=== PATIENT | female | born 1940 | race Caucasian/White ===

== ENCOUNTER 2022-12-31 05:20 | Day surgery (SDC) | payer MEDICARE, MEDICAID ==
[~2022-12-31] VITALS: Ht 160 cm; Wt 72.6 kg
[2022-12-31] MEDS ORDERED: LABETALOL 100 MG/ 20ML VIAL IVP PRN (08:30)
[2022-12-31] MEDS ORDERED: METOCLOPRAMIDE HCL 10 MG/2 ML VIAL IVP PRN (08:30)
[2022-12-31] MEDS ORDERED: LR 1,000 ML IV SCH (08:30)
[2022-12-31] MEDS ORDERED: HYDROmorphone 1 MG/ML INJ. CARTRIDGE IVP PRN ×2 (08:30)
[2022-12-31] MEDS ORDERED: MEPERIDINE HCL/PF 25 MG/ML DISP.SYRIN IVP PRN (08:30)
[2022-12-31] MEDS ORDERED: hydrALAZINE HCL 20 MG/ML VIAL IVP PRN (08:30)
[2022-12-31] MEDS ORDERED: DESFLURANE 15 MIN GAS INH ONE (09:10)
[2022-12-31] MEDS ORDERED: LIDOCAINE/EPI 1% 1:100000 20 ML VIAL ONE (09:10)
[2022-12-31] MEDS ORDERED: ONDANSETRON HCL 4 MG/2 ML VIAL ONE (09:10)
[2022-12-31] MEDS ORDERED: LR 1,000 ML IV.SOLN IV ONE (09:10)
[2022-12-31] MEDS ORDERED: SUGAMMADEX SODIUM 200 MG/2 ML VIAL IV ONE (09:10)
[2022-12-31] MEDS ORDERED: OXYMETAZOLINE HCL 0.05% NASAL SPRAY NS ONE (09:10)
[2022-12-31] MEDS ORDERED: METOCLOPRAMIDE HCL 10 MG/2 ML VIAL ONE (09:10)
[2022-12-31] MEDS ORDERED: DEXAMETHASONE SOD PHOSPHATE 4 MG/ML VIAL ONE (09:10)
[2022-12-31] MEDS ORDERED: ROCURONIUM BROMIDE 10 MG/ML (ZEMURON) ONE (09:10)
[2022-12-31] MEDS ORDERED: LIDOCAINE 1% 10 MG/ML, 20 ML MDV ONE (09:10)
[2022-12-31] MEDS ORDERED: NS IRRIG SOLN 1000 ML IR ONE (09:10)
[2022-12-31] MEDS ORDERED: MIDAZOLAM HCL 5 MG/ML VIAL (VERSED) IV ONE (09:10)
[2022-12-31] MEDS ORDERED: PROPOFOL 200MG/ 20ML VIAL (DIPRIVAN) IV ONE (09:10)
[2022-12-31] MEDS ORDERED: CIPROFLOXACIN HCL 0.3% EYE DRP 2.5 ML DROPS ONE (09:10)
[2022-12-31] MEDS ORDERED: fentaNYL CITRATE/PF 100 MCG/2 ML AMP ONE (09:10)
[2022-12-31] MEDS ORDERED: LABETALOL HCL 20 MG/4 ML CARTRIDGE IVP ONE (09:40)
[2022-12-31 13:44] VITALS: BP_SYST 125
== END 2022-12-31 11:34 | disposition home or self-care (01) ==
LOC: SDS 05:20 → SMU 05:20 → SDS 11:34
PROVIDERS: ATTEND Otolaryngology
DX: H65.92 Unspecified nonsuppurative otitis media, left ear (principal); H68.101 Unspecified obstruction of Eustachian tube, right ear; E03.9 Hypothyroidism, unspecified; E78.00 Pure hypercholesterolemia, unspecified; H60.63 Unspecified chronic otitis externa, bilateral; H81.13 Benign paroxysmal vertigo, bilateral; I10 Essential (primary) hypertension; Z79.899 Other long term (current) drug therapy; Z20.822 Contact with and (suspected) exposure to COVID-19
CPT/HCPCS: 69705; 36415; 87426; 69436; J3490; J1100; J2001; J2765; J2250; J2405; J2704; J3010; J7120; L8699